=== PATIENT | female | born 2000 | race African-American/Black ===

== ENCOUNTER 2019-06-03 11:56 | Emergency (ER) | payer OTHER ==
[~2019-06-03] VITALS: Ht 162.6 cm; Wt 63.5 kg
[2019-06-03] MEDS ORDERED: KEFLEX500 M1 PO (13:39)
[2019-06-03] MEDS ORDERED: CORTISPORIN OTI10 M2 OTIC (13:39)
[2019-06-03 13:47] VITALS: BP 110/80
== END 2019-06-03 13:40 | disposition home or self-care (01) ==
LOC: ER 11:56
DX: H60.02 Abscess of left external ear (principal)